=== PATIENT | female | born 1970 | race Caucasian/White ===

== ENCOUNTER 2021-07-04 05:57 | Inpatient (IN) ==
--- NOTE | 2021-05-15 15:32 | PAT Medication Instructions ---
Medication Instructions Date of Service May 15, 2021 Home Medications atenolol 25 mg tablet 25 mg PO QAM hydrochlorothiazide 25 mg tablet 25 mg PO QAM levothyroxine 112 mcg tablet (Synthroid) 112 mcg PO QAM pantoprazole 40 mg tablet,delayed release (Protonix) 40 mg PO QAM potassium chloride 20 mEq tablet,extended release 20 meq PO QAM DO NOT take the morning of surgery hydrochlorothiazide 25 mg tablet 25 mg PO QAM potassium chloride 20 mEq tablet,extended release 20 meq PO QAM Take morning of surgery With a small sip of water, OTHERWISE NOTHING TO EAT OR DRINK AFTER MIDNIGHT: atenolol 25 mg tablet 25 mg PO QAM levothyroxine 112 mcg tablet (Synthroid) 112 mcg PO QAM pantoprazole 40 mg tablet,delayed release (Protonix) 40 mg PO QAM Other Notes If you have any questions please call us at [phone] or [phone] or [phone] or [phone]
--- NOTE | 2021-06-20 13:23 | Anesthesiology Consultation ---
Date of Service June 20, 2021 Assessment & Plan (1) Encounter for pre-operative examination: - Awaiting surgeon-ordered PCP preop evaluation (Dr Reji Montes; [place]). - COVID screening: Per assessment on 06/20: No known COVID-19 positive contacts or current COVID-19 related symptoms. Travel screen negative. Surgeon arranging preop COVID testing. Awaiting results. - ETOH abuse: 2 days of "binge drinking" of approximately 9 "small" beers/day (typically throughout of day), then no ETOH use x few days. Patient reports no issue with NPO AM DOS. Chart Review Chart Review: Patient seen in Pre Admission Testing Teaching & Discussion Pre-Anesthesia Teaching/Discussion Notes: Instructed NPO after midnight before surgery,except medications with 15 cc of water. Medication instructions provided according to the PAT guidelines. History Surgery Operation Date: 06/03/21 11:05 Proposed Procedures p C5-C7 Anterior Cervical Discectomy and Fusion, C6 Corpectomy, Spinal Cord Monitoring - Cullen Bennett DO Operation Date: 07/04/21 07:45 Proposed Procedures p C5-C7 Anterior Cervical Discectomy and Fusion, C6 Corpectomy Spinal Cord Monitoring - Cullen Bennett DO Height/Weight Height: 5 ft 4.5 in Weight: 67.9 kg Allergies Allergy/AdvReac Type Severity Reaction Status Date / Time morphine AdvReac Unknown Itchy Verified 06/20/21 13:22 Medications Home Medications Medication Instructions Recorded Confirmed Last Taken atenolol 25 mg tablet 25 mg PO QAM 05/15/21 05/15/21 Unknown hydrochlorothiazide 25 mg tablet 25 mg PO QAM 05/15/21 05/15/21 Unknown levothyroxine 112 mcg tablet 112 mcg PO QAM 05/15/21 05/15/21 Unknown (Synthroid) pantoprazole 40 mg tablet,delayed 40 mg PO QAM 05/15/21 05/15/21 Unknown release (Protonix) potassium chloride 20 mEq 20 meq PO QAM 05/15/21 05/15/21 Unknown tablet,extended release Past Medical History Medical History Anxiety Bipolar disorder Depression GERD (gastroesophageal reflux disease) Controlled Hyperlipidemia Hypertension Hypothyroidism Post traumatic stress disorder Exercise / Class Metabolic Activity II 4-5 Yardwork/Stairs/Walk up hill (one FS (no CP, no SOB)) Past Family History Family History Mother Family history of diabetes mellitus Father Family history of diabetes mellitus Brother Family history of diabetes mellitus Sister Family history of diabetes mellitus Past Surgical History Surgical History History of bilateral tubal ligation History of colonoscopy History of esophagogastroduodenoscopy (EGD) History of thyroidectomy, subtotal History of tonsillectomy History of tooth extraction Past Anesthesia History No Family Hx of Anesthesia Complications and Other (intraop BP changes with prior surgery (but this was prior to patient being diagnosed with HTN and started on BP meds)) History of PONV No Hx of PONV and No Hx of Motion Sickness STOP BANG Total 4 Social History Smoking Status: Current every day smoker Smoking cigarettes per day: 20 cigs/day (hx tobacco use x 40 years) Do You Dip or Chew Tobacco: No Hx Alcohol Use: Yes Alcohol type: beer alcohol intake frequency: 3 or more drinks per day (2 days of "binge drinking" of approximately 9 "small" beers/day then no ETOH use x few days) Hx Substance Use: No Review of Systems Patient denies chest pain, shortness of breath, dyspnea on exertion, fever, chills, cough, wheezing, palpitations. Physical Exam Vital Signs VITALS BP 130/86 P 72 TEMP 98.2 SP02 99%RA RESP 16 PHYSICAL Mildly decreased cervical extension range of motion. Full TMJ range of motion. TMD 4 finger breaths Mallampati Score 3 Dentition: upper dentures, edentulous Lungs: clear throughout to auscultation Cardiac: regular rate and rhythm, no murmurs noted Spine: normal Carotid arteries: negative bruit Extremities: no edema Lab Results Anesthesia Preop Results Results Anesthesia Widget: WBC 10.91 K/uL (4.8-10.8) H 06/20/21 Hgb 14.0 g/dL (12.0-16.0) 06/20/21 Hct 41.9 % (37-47) 06/20/21 Plt 219 K/uL (130-400) 06/20/21 Na 133 mmol/L (136-145) L 06/20/21 K 3.4 mmol/L (3.5-5.1) L 06/20/21 Cl 95 mmol/L (98-107) L 06/20/21 CO2 31 mmol/L (21-32) 06/20/21 BUN 13 mg/dl (6-23) 06/20/21 Creat 0.71 mg/dl (0.6-1.2) 06/20/21 Glucose Level 128 mg/dl (70-99(Fasting)) H 06/20/21 PT 10.0 Seconds (9.0-12.0) 06/20/21 PTT 26.4 Seconds (21.0-31.0) 06/20/21 INR 0.9 (0.9-1.1) 06/20/21 Urine Color Yellow 06/20/21 Urine Appearance Clear (Clear) 06/20/21 Urine pH 6.0 (4.5-7.5) 06/20/21 Urine Specific [place] 1.010 (1.000-1.030) 06/20/21 Urine Protein Negative (Negative) 06/20/21 Urine Glucose (UA) Negative (Negative) 06/20/21 Urine Ketones Negative (Negative) 06/20/21 Urine Blood Negative (Negative) 06/20/21 Urine Nitrite Negative (Negative) 06/20/21 Urine Bilirubin Negative (Negative) 06/20/21 Urine Urobilinogen Negative (Negative) 06/20/21 Urine Leukocyte Esterase Negative (Negative) 06/20/21 Blood Type O Positive 06/20/21 Antibody Screen NEGATIVE 06/20/21 Testing Electrocardiogram Date: 06/20/21 Findings: + NSR @ (65) Chest X-Ray Date: 06/20/21 FINDINGS: Lung volumes are normal. Lungs are clear. There is no pneumothorax or pleural effusion. Cardiac size is normal. Mediastinal contours are normal. There is no evidence for pulmonary edema. Incidental note is made of several old left- sided rib fractures. IMPRESSION: No acute cardiopulmonary findings.
[2021-07-04] MEDS ORDERED: CeleBREX 200 MG CAP PO SCH (06:00)
[2021-07-04] MEDS ORDERED: ACETAMINOPHEN 500 MG TAB PO SCH (06:00)
[2021-07-04] MEDS ORDERED: LR 15ML/HR IV SCH (06:00)
[2021-07-04] MEDS ORDERED: ceFAZolin 1000MG 1,000 MG/7.5 ML SYR IV SCH (06:00)
[2021-07-04] MEDS ORDERED: GABAPENTIN 900 MG DOSE PO SCH (06:00)
[2021-07-04] MEDS ORDERED: fentaNYL citrate 100 MCG/2 ML VIAL ONE (07:03)
[2021-07-04] MEDS ORDERED: DEXAMETHASONE SOD INJ 4 MG/ML VIAL ONE (07:03)
[2021-07-04] MEDS ORDERED: ceFAZolin 330 MG/ML 1 GM VIAL ONE (07:03)
[2021-07-04] MEDS ORDERED: PROPOFOL IV EMULSION 10 MG/ML 20 ML VIAL IV ONE (07:03)
[2021-07-04] MEDS ORDERED: LIDOCAINE 2% 2 ML VIAL/AMP(20MG/ML) INFIL ONE (07:03)
[2021-07-04] MEDS ORDERED: ONDANSETRON INJ 2 MG/ML 2 ML VIAL ONE (07:03)
[2021-07-04] MEDS ORDERED: MIDAZOLAM HCL 1 MG/ML 2ML VIAL ONE (07:04)
[2021-07-04] MEDS ORDERED: PROMETHAZINE HCL 12.5 MG in SODIUM CHLORIDE 0.9% 50 ML IV PRN ×2 (07:10→12:02)
[2021-07-04] MEDS ORDERED: LABETALOL HCL IV 5 MG/ML 20ML IV PRN (07:10)
[2021-07-04] MEDS ORDERED: ePHEDrine sulfate 50 MG/ML AMP IV PRN (07:10)
[2021-07-04] MEDS ORDERED: ATROPINE SULFATE 0.1 MG/ML 10ML SYR IV PRN (07:10)
[2021-07-04] MEDS ORDERED: ONDANSETRON INJ 2 MG/ML 2 ML VIAL IV PRN ×2 (07:10→12:02)
[2021-07-04] MEDS ORDERED: fentaNYL citrate 100 MCG/2 ML VIAL IV PRN (07:10)
[2021-07-04] MEDS ORDERED: FLUMAZENIL 0.1 MG/1 ML 10 ML VIAL IV PRN (07:10)
[2021-07-04] MEDS ORDERED: HYDROmorphone INJ 1 MG/ML SYRINGE IV PRN ×2 (07:10→12:02)
[2021-07-04] MEDS ORDERED: NALOXONE HCL 0.4 MG/1 ML VIAL/CARP IV PRN ×2 (07:10→12:02)
[2021-07-04] MEDS ORDERED: FLOSEAL HEMOSTATIC MATRIX 10ML TOP ONE (07:16)
--- NOTE | 2021-07-04 07:28 | History & Physical Bridge Note ---
Date of Service July 04, 2021 History & Physical Bridge Note I have examined the patient, reviewed the History & Physical and in the interval since the performance of the History & Physical I have noted the following changes of clinical significance: no changes noted
--- NOTE | 2021-07-04 07:30 | History & Physical Report ---
Date of Service July 04, 2021 Assessment & Plan (1) Myelopathy concurrent with and due to spinal stenosis of cervical region: Plan: C5-C7 anterior cervical discectomy and fusion, C6 corpectomy History of Present Illness Chief Complaint: Neck and bilateral arm pain Primary Care Provider: RODRIGUEZ PCP This is a 51-year-old female who presents with current persistent neck and arm symptoms with failed course of nonoperative care she is here for surgical invention. Allergies Allergy/AdvReac Type Severity Reaction Status Date / Time morphine AdvReac Unknown Itchy Verified 07/04/21 06:23 Home Medications Medication Instructions Recorded Confirmed Type atenolol 25 mg tablet 25 mg PO QAM 05/15/21 07/04/21 History hydrochlorothiazide 25 mg tablet 25 mg PO QAM 05/15/21 07/04/21 History levothyroxine 112 mcg tablet 112 mcg PO QAM 05/15/21 07/04/21 History (Synthroid) pantoprazole 40 mg tablet,delayed 40 mg PO QAM 05/15/21 07/04/21 History release (Protonix) potassium chloride 20 mEq 20 meq PO QAM 05/15/21 07/04/21 History tablet,extended release Past Med/Surg History Medical History Anxiety Bipolar disorder Depression GERD (gastroesophageal reflux disease) Controlled Hyperlipidemia Hypertension Hypothyroidism Post traumatic stress disorder Surgical History History of bilateral tubal ligation History of colonoscopy History of esophagogastroduodenoscopy (EGD) History of thyroidectomy, subtotal History of tonsillectomy History of tooth extraction Family History Mother Family history of diabetes mellitus Father Family history of diabetes mellitus Brother Family history of diabetes mellitus Sister Family history of diabetes mellitus Social History (Updated 05/15/21 @ 13:44 by Mary Anne Alvarez RN) Smoking Status: Current every day smoker Cigarettes Per Day: 20 cigs/day (hx tobacco use x 40 years); Second Hand Exposure: Yes (BELLE SMOKES); Do You Dip or Chew Tobacco: No; Hx Alcohol Use: Yes Alcohol type: beer Alcohol Intake Frequency: 4 or More x per/Week Hx Substance Use: No Preferred Language: Moldovan Communication Ability: Effective Electrical Cad Technician Required: No Beliefs That Will Affect Care: Islam Islam Beliefs: PROTESTANT Current Living Situation: Spouse current occupational status: unemployed Other Information That Helps Us Care for You: No Feels Safe at Home: Yes Safety Concerns: Feels Safe At This Time Assistive Devices: Denture - Upper and Glasses Physical Exam Physical Exam: Patient is alert and oriented Heart regular rhythm Lungs clear Results & Data Results & Data ([facility]) Vital Signs (Past 12 Hours) Vital Signs Temp Pulse Resp BP Pulse Ox 07/04/21 06:26 37 C 88 20 151/101 H 96
[2021-07-04] MEDS ORDERED: ROCURONIUM BROMIDE 10 MG/ML 5 ML VIAL IV ONE (08:07)
[2021-07-04] MEDS ORDERED: HYDROmorphone INJ 2 MG/ML SYR/VIAL ONE (08:23)
[2021-07-04] MEDS ORDERED: GLYCOPYRROLATE 0.2 MG/ML VIAL ONE (08:59)
[2021-07-04] MEDS ORDERED: NEOSTIGMINE METHYLSULFATE 1 MG/ML 10ML VIAL ONE (08:59)
--- NOTE | 2021-07-04 09:22 | Operative Report ---
Post Operative Report Pre & Post Diagnosis Operation Date: 06/03/21 11:05 <No data on this case meets the specified criteria> Operation Date: 07/04/21 07:45 Pre-Op Diagnosis: Myelopathy concurrent with and due to spinal stenosis of cervical region. Post-Op Diagnosis: Myelopathy concurrent with and due to spinal stenosis of cervical region. I identified the patient and participated in the time-out.: Yes Procedure Operation Date: 06/03/21 11:05 <No data on this case meets the specified criteria> Operation Date: 07/04/21 07:45 Actual Procedures #1 anterior cervical corpectomy with bilateral foraminotomies C6. #2 anterior cervical thesis C5-C7. #3 placement of peek cage 23 mm in height C5-C7. #4 p lacement locally harvested morselized autograft combined with I factor interbody cage. #5 placement of 5 complete and screws from C5-C7. Surgeon Cullen Bennett, DO Senior Sales Engineer José Joyce Estimated Blood Loss 20 Findings Consistent with Post-Op Diagnosis Specimens None Indications This is a 51-year-old female who presents with mild radicular cervical symptoms after failing course of nonoperative care is here for surgical invention. Description of Procedure Patient was met with identified informed consent obtained. Patient was then taken to the operative suite underwent ablation placed in a supine position adjustable head [place] villafuerte. All bony prominences well-padded eyes inspected to ensure no external pressure placed upon. This point the anterior cervical spine was prepped and draped in the normal sterile fashion. With the assistance of fluoroscopy notified to see 6 vertebral body. Transverse incision was placed along the right anterior aspect of several spinal lines region. Blunt dissection with assistance of bipolar electrocautery performed down to expose the anterior cervical spine from C5-C7. Several 10 retractors placed. Then performed a complete discectomy of C5-C6 out to the uncovertebral joints bilaterally followed by C6-C7. [place] distraction pins were then placed in C5 and C7 to distract across the C6 vertebral body. A complete corpectomy was then performed including removal of all posterior annular fibers longitudinal ligament bilateral foraminotomies addressed. The endplates were then burred to subcortical bleeding bone and a 23 mm peek cage filled with locally harvested morselized autograft and I factor tapped in position. Distracting apparatus was removed all anterior osteophytes burred to a smooth cortical surface and 5 complete screws applied with the assistance of fluoroscopy. The incision was then copiously irrigated explored to ensure no damage to surrounding structures remaining bleeding. 10 round ALAINA drain inserted. The incision was then closed with 2 Vicryl in a fashion of 4 Monocryl for final skin closure. Steri-Strip sterile dressings placed. Patient waken taken PACU stable condition. Please note spinal cord monitoring was utilized at the procedure no changes noted. Lastly José Joyce was present throughout the entire procedure involved the patient positioning complex portions of the surgery and final skin closure. I attest to the content of the Intraoperative Record and any orders documented therein. Any exceptions are noted below.
--- NOTE | 2021-07-04 09:37 | Fluoroscopy Report ---
FL cervical 2-3V CLINICAL HISTORY: ACDF C5-C7/ CORPECTOMY C6 COMPARISON STUDY: None. FLUOROSCOPY TIME: 8 seconds. FLUOROSCOPIC IMAGES: 2 FINDINGS: Fluoroscopy was provided during C6 corpectomy and C5-C7 anterior discectomy and fusion. Renee gical drain is in place. Endotracheal tube is partially imaged. IMPRESSION: Fluoroscopy provided during C6 corpectomy and C5-C7 anterior discectomy and fusion. ACT 112: Negative or not required by law. Electronically signed by: Jostin Maurice M.D. 07/04/2021 9:36 AM
[2021-07-04] MEDS ORDERED: LABETALOL HCL IV 5 MG/ML 20ML IV STA (09:58)
--- NOTE | 2021-07-04 10:49 | Anesthesiology Progress Note ---
Date of Service July 04, 2021 Anesthesia Post Procedure Vital Signs Vital Signs: Temp Pulse Pulse Resp BP Pulse Ox 07/04/21 10:40 36.5 C 76 18 160/84 H 96 07/04/21 10:30 55 L 14 146/90 H 97 07/04/21 10:20 56 L 12 163/84 H 96 07/04/21 10:10 55 L 12 154/86 H 98 07/04/21 10:00 63 14 169/87 H 97 07/04/21 09:50 83 15 182/101 H 96 07/04/21 09:40 36.0 C L 76 17 185/100 H 95 07/04/21 06:26 37 C 88 20 151/101 H 96 Transfer of Care Handoff Completed per policy Notes Mental Status: alert / awake / arousable Patient Amnestic to Procedure: Yes Nausea / Vomiting: adequately controlled Pain: adequately controlled Airway Patency, RR, SpO2: stable & adequate BP & HR: stable & adequate Hydration State: stable & adequate Anesthetic Complications: no major complications apparent
[2021-07-04] MEDS: LACTATED RINGER'S 1,000 ML IV SCH ×2 (12:00→21:08)
[2021-07-04] MEDS ORDERED: ACETAMINOPHEN 1,000 MG/100 ML VIAL IV PRN (12:02)
[2021-07-04] MEDS ORDERED: diphenhydrAMINE Capsule 25 MG CAP PO PRN (12:02)
[2021-07-04] MEDS ORDERED: HYDROmorphone INJ 0.5 MG/0.5 ML SYR IV PRN (12:02)
[2021-07-04] MEDS ORDERED: DO NOT ADMINISTER FLU VACCINE PRN (12:02)
[2021-07-04] MEDS ORDERED: RACEPINEPHRINE 2.25% NEBU SOLN 0.5 ML VIAL INH PRN (12:02)
[2021-07-04] MEDS ORDERED: LORazepam 0.5 MG TAB PO PRN (12:02)
[2021-07-04] MEDS ORDERED: MAGNESIUM HYDROXIDE SUSP 30 ML UDC PO PRN (12:02)
[2021-07-04] MEDS ORDERED: LORazepam 2 MG/1 ML VIAL IV PRN (12:02)
[2021-07-04] MEDS ORDERED: SOD PHOSPHATE/SOD BIPHOSPHATE ENEMA 132 ML BTL PR PRN (12:02)
[2021-07-04] MEDS ORDERED: ONDANSETRON 4 MG OD TAB PO PRN (12:02)
[2021-07-04] MEDS ORDERED: ACETAMINOPHEN 500 MG TAB PO PRN (12:02)
[2021-07-04] MEDS ORDERED: traMADol HCL 50 MG TABLET PO PRN (12:02)
[2021-07-04] MEDS ORDERED: METOCLOPRAMIDE HCL INJ 5 MG/ML 2 ML VIAL IV PRN (12:02)
[2021-07-04] MEDS ORDERED: DO NOT ADMINISTER PNEUMOCOCCAL VACCINE PRN (12:02)
[2021-07-04] MEDS ORDERED: hydrOXYzine HCl 25 MG TAB PO PRN (12:02)
[2021-07-04] MEDS ORDERED: FAMOTIDINE 20 MG TAB PO PRN (12:02)
[2021-07-04] MEDS ORDERED: dexAMETHasone 8 MG in SYRINGE 0 ML IV PRN (12:02)
[2021-07-04] MEDS ORDERED: ALUMINUM/MAGNESIUM SUSP 30 ML UDC PO PRN (12:02)
[2021-07-04] MEDS ORDERED: bisacodyL 10 MG SUPP PR PRN (12:02)
[2021-07-04] MEDS ORDERED: ATENOLOL 25 MG TABLET PO ONE (12:45)
--- NOTE | 2021-07-04 12:50 | Consultation ---
Date of Consultation July 04, 2021 Assessment & Plan (1) S/P spinal surgery: (2) Myelopathy concurrent with and due to spinal stenosis of cervical region: Post op day# 0 S/P ACDF by Dr Bennett EBMaxi#20ml -pain management per ortho -wound management per ortho -PT/OT as appropriate -DVT prophylaxis per ortho -monitor H&H for acute blood loss anemia; pre-op Hgb: 14 (3) Hypertension: -Continue atenolol, HCTZ (4) Hypothyroidism: -Continue Synthroid (5) GERD (gastroesophageal reflux disease): -Continue PPI (6) Tobacco use: -Smoking cessation recommended -Patient will alert if wants a nicotine patch DVT Prophylaxis -SCDs Disposition per primary service Follows with Dr Reji Montes in [place] for routine care Pt was seen and care coordinated with Dr Fontana. See addendum Supervising Physician Co-Signing Physician Notes Patient seen and examined at bedside. Chart reviewed, Case discussed with Anali SÁNCHEZ and agree with her documentation above. In summary, 51 year old female with myelopathy concurrent with and due to cervical spinal stenosis who underwent #1 anterior cervical corpectomy with bilateral foraminotomies C6. #2 anterior cervical thesis C5-C7. #3 placement of peek cage 23 mm in height C5-C7. #4 placement locally harvested morselized autograft combined with I factor interbody cage. #5 placement of 5 complete and screws from C5-C7 today by Dr Bennett. Hospitalist service consulted for post op management. Seen post operatively. Sleeping soundly. On NC. On cervical collar, Incision clean dry intact with ALAINA drain in place. Not in distress. Diet, DVT prophylaxis, activities and pain management per ortho. Continue home meds for her HTN, hypothyroidism and GERD. We will be available to assist with any medical problems that arise during the hospital stay. Rest as per the note above. History of Present Illness Requesting Physician: Dr Bennett Reason for Consultation: Post op medical management Attending Physician: Cullen Bennett DO History of Present Illness Patient is a 51-year-old female with PMH HTN, HLD, hypothyroidism, GERD, anxiety, depression, bipolar disorder seen in medical consultation s/p ACDF today by Dr. Bennett. Postop patient reports doing well. Denies pain currently. Reports her right upper extremity paresthesias feel the same as prior to surgery. Drinking fluids and tolerating clear liquid diet for lunch. Denies nausea, vomiting, dysphagia, chest pain, shortness of breath. Denies fever/chills, MCKEON, dizziness, syncope, vision changes, cough, sore throat, otalgia, rhinorrhea, abdominal pain, weakness, extremity edema, rashes, urinary symptoms. Allergies Allergy/AdvReac Type Severity Reaction Status Date / Time morphine AdvReac Unknown Itchy Verified 07/04/21 06:23 Home Medications Medication Instructions Recorded Confirmed Type atenolol 25 mg tablet 25 mg PO QAM 05/15/21 07/04/21 History hydrochlorothiazide 25 mg tablet 25 mg PO QAM 05/15/21 07/04/21 History levothyroxine 112 mcg tablet 112 mcg PO QAM 05/15/21 07/04/21 History (Synthroid) pantoprazole 40 mg tablet,delayed 40 mg PO QAM 05/15/21 07/04/21 History release (Protonix) potassium chloride 20 mEq 20 meq PO QAM 05/15/21 07/04/21 History tablet,extended release oxycodone 5 mg tablet 5 mg PO Q6H PRN #30 tab 07/04/21 Rx tramadol 50 mg tablet 50 mg PO Q6H PRN #30 tab 07/04/21 Rx Patient History Medical History Anxiety Bipolar disorder Depression GERD (gastroesophageal reflux disease) Controlled Hyperlipidemia Hypertension Hypothyroidism Post traumatic stress disorder Tobacco use Surgical History (Updated 07/04/21 @ 12:59 by Anali Garcia PA-C) History of bilateral tubal ligation History of colonoscopy History of esophagogastroduodenoscopy (EGD) History of thyroidectomy, subtotal History of tonsillectomy History of tooth extraction Family History Mother Family history of diabetes mellitus Father Family history of diabetes mellitus Brother Family history of diabetes mellitus Sister Family history of diabetes mellitus Social History Smoking Status: Current every day smoker Cigarettes Per Day: 20 cigs/day (hx tobacco use x 40 years); Second Hand Exposure: Yes (BELLE SMOKES); Do You Dip or Chew Tobacco: No; Hx Alcohol Use: Yes Alcohol type: beer Alcohol Intake Frequency: 4 or More x per/Week Hx Substance Use: No Preferred Language: Filipino Communication Ability: Effective Vp Organizational Development Required: No Beliefs That Will Affect Care: Orthodoxy Orthodoxy Beliefs: DRUZE Current Living Situation: Spouse current occupational status: unemployed Other Information That Helps Us Care for You: No Feels Safe at Home: Yes Safety Concerns: Feels Safe At This Time Assistive Devices: Denture - Upper and Glasses Review of Systems Review of Systems: All systems reviewed & are unremarkable except as noted in HPI & below Physical Exam Physical Exam: General: no distress, WDWN Head: normocephalic, atraumatic Eyes: conjunctiva non-injected, anicteric ENT: normal inspection external ears, nose, mucous membranes moist Neck: C-collar in place, anterior neck with surgical dressing in place and dry, +ALAINA drain with scant amount of serosanguineous drainage, trachea midline Lungs: no respiratory distress, coarse breath sounds, no wheezing/rhonchi/rales CV: RRR, no murmur, no pretibial edema Abd: normal BS, soft, non-tender Ext: no cyanosis, no calf tenderness; bilateral psychological anthropologist strength intact, bilateral pedal pushes and pulls intact Neuro: A&O x 3, no focal deficits noted, normal affect Skin: warm, dry Results & Data ([facility]) Vital Signs (Past 12 Hours) Vital Signs Temp Pulse Pulse Resp BP Pulse Ox 07/04/21 11:15 68 12 149/85 H 95 07/04/21 11:00 58 L 12 135/93 95 07/04/21 10:50 64 12 150/89 H 96 07/04/21 10:40 36.5 C 76 18 160/84 H 96 07/04/21 10:30 55 L 14 146/90 H 97 07/04/21 10:20 56 L 12 163/84 H 96 07/04/21 10:10 55 L 12 154/86 H 98 07/04/21 10:00 63 14 169/87 H 97 07/04/21 09:50 83 15 182/101 H 96 07/04/21 09:40 36.0 C L 76 17 185/100 H 95 07/04/21 06:26 37 C 88 20 151/101 H 96
[2021-07-04] MEDS: ceFAZolin 1000MG 1,000 MG/7.5 ML SYR IV SCH ×2 (16:31→23:07)
[2021-07-04] MEDS ORDERED: DOCUSATE SODIUM/SENNA 50/8.6MG TAB PO SCH (21:00)
[2021-07-04] MEDS: oxyCODONE HCL IR 5 MG TAB (IMMEDIATE RELEASE) PO PRN (23:06)
[2021-07-05] MEDS: oxyCODONE HCL IR 5 MG TAB (IMMEDIATE RELEASE) PO PRN ×2 (03:18→07:13)
[2021-07-05 05:59] LABS: Hematocrit (blood only) 32.2 % (37-47); Hemoglobin 10.9 g/dL (12.0-16.0); Mean Corpuscular Hemoglobin 32.2 pg (25-34); Mean Corpuscular Hgb Conc 33.9 g/dL (32-36); Mean Platelet Volume 10.6 fL (7.4-10.4); Platelet Count 201 K/uL (130-400); RDW Coefficient of Variation 14.4 % (11.5-14.5); Red Blood Count 3.39 M/uL (4.2-5.4)
[2021-07-05] MEDS ORDERED: POLYETHYLENE (MIRALAX) 17 GM PACK PO SCH (06:00)
[2021-07-05 06:19] LABS: BUN Creatinine Ratio 7.1 (10-20); Calcium 8.1 mg/dl (8.5-10.1); Creatinine Clr Calc Pharmacy 110.8 ml/min; Est GFR (African American) 123.4 ml/min; Est GFR (Non-African American) 106.5 ml/min; Potassium 3.8 mmol/L (3.5-5.1)
--- NOTE | 2021-07-05 08:29 | Hospitalist Progress Note ---
Date of Service July 05, 2021 Assessment & Plan (1) S/P spinal surgery: (2) Myelopathy concurrent with and due to spinal stenosis of cervical region: Plan: Post op day# 1 S/P ACDF by Dr Bennett -pain management per ortho -wound management per ortho -PT/OT as appropriate -DVT prophylaxis per ortho Acute blood loss anemia post -op and dilutional pre-op Hgb: 14, current Hgb 10.9 Expected, no need for blood transfusion (3) Hypertension: Plan: -Continue atenolol, HCTZ (4) Hypothyroidism: Plan: -Continue Synthroid (5) GERD (gastroesophageal reflux disease): Plan: -Continue PPI (6) Tobacco use: Plan: -Smoking cessation recommended - nicotine patch offered DVT Prophylaxis -SCDs Disposition per primary service, likely DC later today Follows with Dr Reji Montes in [place] for routine care Admission and Anticipated Discharge Date Admission Date: July 04, 2021 Subjective Pt seen in follow of c-spine surgery She is doing well post-op No fever,chills, chest pain, shortness of breath, abd. 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, bilateral pedal pushes and pulls intact Neuro: A&O x 3, no focal deficits noted, normal affect Skin: warm, dry Results & Data Results & Data ([facility]) Vital Signs (Past 12 Hours) Vital Signs Temp Pulse Pulse Resp BP Pulse Ox 07/05/21 07:00 62 18 94 07/05/21 05:34 36.5 C 71 18 149/88 H 94 07/05/21 03:20 36.7 C 61 18 152/84 H 96 07/05/21 01:11 36.9 C 71 16 145/83 H 96 07/04/21 23:08 36.8 C 75 147/69 H 95 07/04/21 22:05 62 16 95 07/04/21 21:11 37.1 C 65 18 151/80 H 97 Laboratory Results 07/05/21 07/05/21 07/05/21 Range/Units 06:06 05:26 05:26 WBC 11.70 H (4.8-10.8) K/uL RBC 3.39 L (4.2-5.4) M/uL Hgb 10.9 L (12.0-16.0) g/dL Hct 32.2 L (37-47) % MCV 95.0 (80-100) fL MCH 32.2 (25-34) pg MCHC 33.9 (32-36) g/dL RDW Std Deviation 50.0 H (36.4-46.3) fL RDW Coeff of Sandra 14.4 (11.5-14.5) % Plt Count 201 (130-400) K/uL MPV 10.6 H (7.4-10.4) fL Sodium 135 L (136-145) mmol/L Potassium 3.8 (3.5-5.1) mmol/L Chloride 102 (98-107) mmol/L Carbon Dioxide 24 (21-32) mmol/L Anion Gap 9 (3-11) BUN 4 L (6-23) mg/dl Creatinine 0.56 L (0.6-1.2) mg/dl Est Cr Clr Drug Dosing 110.8 ml/min Est GFR ( Amer) 123.4 ml/min Est GFR (Non-Af Amer) 106.5 ml/min BUN/Creatinine Ratio 7.1 L (10-20) Glucose 130 H (70-99(Fasting)) mg/dl POC Glucose 137 H (70-99) mg/dl Calcium 8.1 L (8.5-10.1) mg/dl 07/05/21 07/04/21 Range/Units 00:01 17:06 WBC (4.8-10.8) K/uL RBC (4.2-5.4) M/uL Hgb (12.0-16.0) g/dL Hct (37-47) % MCV (80-100) fL MCH (25-34) pg MCHC (32-36) g/dL RDW Std Deviation (36.4-46.3) fL RDW Coeff of Sandra (11.5-14.5) % Plt Count (130-400) K/uL MPV (7.4-10.4) fL Sodium (136-145) mmol/L Potassium (3.5-5.1) mmol/L Chloride (98-107) mmol/L Carbon Dioxide (21-32) mmol/L Anion Gap (3-11) BUN (6-23) mg/dl Creatinine (0.6-1.2) mg/dl Est Cr Clr Drug Dosing ml/min Est GFR ( Amer) ml/min Est GFR (Non-Af Amer) ml/min BUN/Creatinine Ratio (10-20) Glucose (70-99(Fasting)) mg/dl POC Glucose 161 H 268 H (70-99) mg/dl Calcium (8.5-10.1) mg/dl Medications Administered Current Inpatient Medications Acetaminophen (Acetaminophen 500 Mg Tab) 1,000 mg PO Q8H PRN PRN Reason: MILD Pain Scale 1,2,3 & Pre PT Stop: 08/03/21 12:01 Last Admin: 07/05/21 07:13 Dose: 1,000 mg Documented by: Al Hydrox/Mg Hydrox/Simethicone (Aluminum/Magnesium Susp 30 Ml Udc) 30 ml PO Q6H PRN PRN Reason: Dyspepsia Stop: 08/03/21 12:01 Atenolol (Atenolol 25 Mg Tablet) 25 mg PO QAM [facility] Stop: 08/04/21 08:59 Last Admin: 07/05/21 07:14 Dose: 25 mg Documented by: Bisacodyl (Bisacodyl 10 Mg Supp) 10 mg [place] DAILY PRN PRN Reason: Constipation Stop: 08/03/21 12:01 Diphenhydramine HCl (Diphenhydramine Capsule 25 Mg Cap) 25 mg PO Q6H PRN PRN Reason: Allergic Rhinitis/Insomnia Stop: 08/03/21 12:01 Epinephrine (Racepinephrine 2.25% Nebu Soln 0.5 Ml Vial) 0.5 ml INH NOW PRN PRN Reason: If stridor present Famotidine (Famotidine 20 Mg Tab) 20 mg PO Q12H PRN PRN Reason: Dyspepsia Stop: 08/03/21 12:01 Hydrochlorothiazide (Hydrochlorothiazide 25 Mg Tab) 25 mg PO QAM [facility] Stop: 08/04/21 08:59 Last Admin: 07/05/21 07:14 Dose: 25 mg Documented by: Hydromorphone HCl (Hydromorphone Inj 0.5 Mg/0.5 Ml Syr) 0.5 mg IV Q3H PRN PRN Reason: MOD pain (scale 4-6) & Pre PT Stop: 07/18/21 12:01 Hydromorphone HCl (Hydromorphone Inj 1 Mg/Ml Syringe) 1 mg IV Q3H PRN PRN Reason: severe pain (scale 7-10) Stop: 07/18/21 12:01 Last Admin: 07/04/21 18:49 Dose: 1 mg Documented by: Hydroxyzine HCl (Hydroxyzine Hcl 25 Mg Tab) 25 mg PO Q8H PRN PRN Reason: Anxiety Stop: 08/03/21 12:01 Dexamethasone 8 mg/ Syringe 2 mls @ 1 mls/min IV NOW PRN PRN Reason: If stridor present Promethazine HCl 12.5 mg/ (Sodium Chloride) 50.5 mls @ 202 mls/hr IV Q6H PRN PRN Reason: Nausea &/or Vomiting Stop: 08/03/21 12:01 Acetaminophen (Ofirmev) 1,000 mg in 100 mls @ 400 mls/hr IV Q8H PRN PRN Reason: Pain Rating 1-3 & Pre PT Stop: 07/07/21 12:01 Dexamethasone 6 mg/ Syringe 1.5 mls @ 1 mls/min IV DAILY [facility] Stop: 07/07/21 09:02 Last Admin: 07/05/21 07:13 Dose: 1 mls/min Documented by: Influenza Virus Vaccine Quadrival (Do Not Administer Flu Vaccine) 1 ea N/A PRN PRN PRN Reason: Notification Stop: 08/03/21 12:01 Levothyroxine Sodium (Levothyroxine Sodium 112 Mcg Tablet) 112 mcg PO QAM [facility] Stop: 08/04/21 08:59 Last Admin: 07/05/21 07:14 Dose: 112 mcg Documented by: Lorazepam (Lorazepam 0.5 Mg Tab) 0.5 mg PO Q8H PRN PRN Reason: Sedation/Anxiety Stop: 08/03/21 12:01 Lorazepam (Lorazepam 2 Mg/1 Ml Vial) 0.5 mg IV Q8H PRN PRN Reason: Sedation/Anxiety Stop: 08/03/21 12:01 Magnesium Hydroxide (Magnesium Hydroxide Susp 30 Ml Udc) 30 ml PO Q24H PRN PRN Reason: Constipation Stop: 08/03/21 12:01 Metoclopramide HCl (Metoclopramide Hcl Inj 5 Mg/Ml 2 Ml Vial) 10 mg IV Q6H PRN PRN Reason: Nausea &/or Vomiting Stop: 08/03/21 12:01 Naloxone HCl (Naloxone Hcl 0.4 Mg/1 Ml Vial/Carp) 0.1 mg IV Q5M PRN PRN Reason: Oversedation/Resp depression Stop: 08/03/21 12:01 Ondansetron HCl (Ondansetron Inj 2 Mg/Ml 2 Ml Vial) 4 mg IV Q6H PRN PRN Reason: Nausea &/or Vomiting Stop: 08/03/21 12:01 Ondansetron HCl (Ondansetron 4 Mg Od Tab) 4 mg PO Q6H PRN PRN Reason: Nausea Stop: 08/03/21 12:01 Oxycodone HCl (Oxycodone Hcl Ir 5 Mg Tab (Immediate Release)) 5 - 10 mg PO Q4H PRN PRN Reason: Pain & Pre PT Stop: 07/18/21 12:01 Last Admin: 07/05/21 07:13 Dose: 10 mg Documented by: Pantoprazole Sodium (Pantoprazole 40 Mg Tab) [facility] Stop: 08/04/21 08:59 Last Admin: 07/05/21 07:14 Dose: 40 mg Documented by: Pneumococcal Polyvalent Vaccine (Do Not Administer Pneumococcal Vaccine) 1 ea N/A PRN PRN PRN Reason: Notification Stop: 08/03/21 12:01 Polyethylene Glycol (Polyethylene (Miralax) 17 Gm Pack) 17 gm PO Q6 [facility] Stop: 08/04/21 05:59 Last Admin: 07/05/21 05:50 Dose: Not Given Documented by: Potassium Chloride (Potassium Chloride Crtab 20 Meq Tabcr) 20 meq PO QAM [facility] Stop: 08/04/21 08:59 Last Admin: 07/05/21 07:14 Dose: 20 meq Documented by: Senna/Docusate Sodium (Docusate Sodium/Senna 50/8.6mg Tab) 2 tab PO HS MIKEL Stop: 08/03/21 20:59 Last Admin: 07/04/21 21:09 Dose: 2 tab Documented by: Sodium Biphosphate/Sodium Phosphate (Sod Phosphate/Sod Biphosphate Enema 132 Ml Btl) 132 ml [place] ONE PRN PRN Reason: Constipation Stop: 08/03/21 12:01 Tramadol HCl (Tramadol Hcl 50 Mg Tablet) 50 - 100 mg PO Q4H PRN PRN Reason: Moderate-Severe pain & Pre PT Stop: 08/03/21 12:01
[2021-07-05] MEDS ORDERED: POTASSIUM CHLORIDE CRTAB 20 MEQ TABCR PO SCH (09:00)
[2021-07-05] MEDS ORDERED: PANTOprazole 40 MG TAB PO SCH (09:00)
[2021-07-05] MEDS ORDERED: ATENOLOL 25 MG TABLET PO SCH (09:00)
[2021-07-05] MEDS ORDERED: hydroCHLOROthiazide 25 MG TAB PO SCH (09:00)
[2021-07-05] MEDS ORDERED: LEVOTHYROXINE SODIUM 112 MCG TABLET PO SCH (09:00)
[2021-07-05] MEDS ORDERED: dexAMETHasone 6 MG in SYRINGE 0 ML IV SCH (09:00)
--- NOTE | 2021-07-05 10:23 | Discharge Summary ---
Date of Service July 05, 2021 Admission HPI Per Admitting Provider This is a 51-year-old female who presents with current persistent neck and arm symptoms with failed course of nonoperative care she is here for surgical invention. Principal Diagnosis Cervical spinal stenosis with myeloradiculopathy Discharge Data Allergies Allergy/AdvReac Type Severity Reaction Status Date / Time morphine AdvReac Unknown Itchy Verified 07/04/21 06:23 Consultations 07/04/21 12:02 Consult Hospitalist Routine Procedures Performed Operation Date: 06/03/21 11:05 <No data on this case meets the specified criteria> Operation Date: 07/04/21 07:45 Actual Procedures p C5-C7 Anterior Cervical Discectomy and Fusion, C6 Corpectomy Spinal Cord Monitoring - Cullen Bennett DO Ordered Studies 07/04/21 07:45 FL cervical 2-3V Routine Hospital Course (1) Myelopathy concurrent with and due to spinal stenosis of cervical region: Patient 1 anterior cervical corpectomy tolerated this well was taken orthopedic for postoperative. Postop day 1 she was swallowing well no hoarseness. Arm symptoms improved. Excellent strength testing. Separately discharged home. Discharge orders and instructions found in the chart for further review. Total Time Total Time Spent Total Time Spent (In Minutes): 20 minutes Discharge Plan Discharge Items Patient Disposition: Home - Self-Care Reason For Visit: Spinal Stenosis, Cervical Region Discharge Diagnosis: Cervical spinal stenosis with radiculopathy Activity: As commented below Non-emergency contact: Primary Care Provider Call non-emergency contact if: you have any medication questions Follow-up/Referrals: PCP,NO [Primary Care Provider] - Diet: Regular Addtl Attending Provider Instructions: ACTIVITY RECOMMENDATIONS: SELF CARE INSTRUCTIONS AFTER CERVICAL FUSIONS 1. No smoking. Smoking drastically decreases the chance of a solid fusion. 2. No bending, lifting more than 5 pounds, or twisting (roll like a log when turning in bed). 3. You may shower 3 days after surgery. Thoroughly dry wound. Do not soak in the tub. 4. Cervical collar: Must be worn at all times including sleeping. You may remove the brace only to bath, eat and if you are sitting in a recliner. 5. Please walk as much as you can for exercise. Gradually increase the distance that you walk as your endurance increases. SPECIAL CARE INSTRUCTIONS: VERY IMPORTANT TO READ AND REVIEW A. Do not take any anti-inflammatory medications (i.e. Indocin, Advil, Aspirin, Naprosyn, Aleve, Motrin, etc.) as these may inhibit the chance of a solid fusion. Tylenol is okay to take. B. Your surgical incision has been closed with a cosmetic suture under the skin that will dissolve in about 6 weeks. In 14 days, you can use a pair of clean scissors and cut the suture that is left outside of the skin at the ends of your incision. C. Complications are uncommon, but please contact us if you have any signs or symptoms of: 1. wound infection (fever higher than 102.5 degrees F, redness, separation of wound, drainage, or increasing pain from the incision) 2. blood clots in legs (pain, swelling, redness and warmth in legs) 3. urinary tract infection (fever higher than 102.5 degrees, burning upon urination or increased frequency of urination) 4. nerve problems (inability to walk on your toes or heels, numbness, loss of bowel or bladder control) 5. any other symptoms that concern you. D. Please call the office at if you have any concerns or questions about your operation or recovery. MANAGING PAIN AFTER SPINAL SURGERY 1. Narcotic medication is intended for short-term use and will be provided for surgical pain. Surgical pain usually lasts for a period of 4-6 weeks. Narcotic medication includes Percocet, Vicodin, Darvocet, Tylenol #3 or Lortab. 2. Longer-term pain is more appropriately treated with non-narcotic medication such as Tylenol ES. 3. Muscle spasm is not appropriately treated with narcotics. Muscle relaxers such as Soma, Flexeril or Skelaxin can be used along with Tylenol ES. 4. Remember that we all live with some "aches and pains". This is not unusual or uncommon after an injury or as we get older. 5. We will provide appropriate medication within the normal guidelines of their prescribed use. We will also be very cautious and aware of potential abuse and extended duration of patients' medication needs. 6. Please allow 2-3 days to process refills. Prescriptions will not be mailed but must be picked up at the office. FOLLOW UP VISIT: Keep your scheduled follow-up appointment. Any questions, please call the office at . Pending Studies at Discharge: No Stand-Alone Forms: [facility], Smoking Cessation Medications and DC Order Prescriptions: New tramadol 50 mg tablet 50 mg PO Q6H PRN (Reason: pain, moderate) Qty: 30 RF: 0 oxycodone 5 mg tablet 5 mg PO Q6H PRN (Reason: pain, severe) Qty: 30 RF: 0 Continued atenolol 25 mg Tablet 25 mg PO QAM RF: 0 pantoprazole [Protonix] 40 mg Tablet,Delayed Release (Dr/Ec) 40 mg PO QAM RF: 0 hydrochlorothiazide 25 mg Tablet 25 mg PO QAM RF: 0 levothyroxine [Synthroid] 112 mcg Tablet 112 mcg PO QAM RF: 0 potassium chloride 20 mEq Tablet Extended Release 20 meq PO QAM RF: 0 Discharge Orders: Discharge Order (Routine); Ordered 07/05/21 Ordered By: Cullen Bennett Admission Data Admit Date/Time: 07/04/21 09:27 Attending Provider: Cullen Bennett Admit Provider: Cullen Bennett Primary Care Provider: PCP,NO Other Providers: Bernardino Ingram
== END 2021-07-05 12:47 | disposition home or self-care (01) | DRG 472 ==
LOC: ASU 05:57 → PACUINP 09:27 → 3E 12:01
DX: K21.9 Gastro-esophageal reflux disease without esophagitis; E03.9 Hypothyroidism, unspecified; M54.12 Radiculopathy, cervical region; Z01.812 Encounter for preprocedural laboratory examination; Z79.890 Hormone replacement therapy; G95.89 Other specified diseases of spinal cord; M48.02 Spinal stenosis, cervical region; I10 Essential (primary) hypertension; Z20.822 Contact with and (suspected) exposure to COVID-19; F31.9 Bipolar disorder, unspecified; F17.210 Nicotine dependence, cigarettes, uncomplicated; Z83.3 Family history of diabetes mellitus; Z88.5 Allergy status to narcotic agent; D62 Acute posthemorrhagic anemia